=== PATIENT | male | born 1995 | race Caucasian/White ===

== ENCOUNTER 2016-12-14 12:01 | Emergency (ER) | payer OTHER | END 2016-12-14 14:17 | disposition home or self-care (01) | LOC: ER 12:01 | DX: K52.9 Noninfective gastroenteritis and colitis, unspecified (principal); J01.90 Acute sinusitis, unspecified; F17.210 Nicotine dependence, cigarettes, uncomplicated; Z79.899 Other long term (current) drug therapy; F32.9 Major depressive disorder, single episode, unspecified | CPT/HCPCS: 36415; 74022; 80053; 83690; 85025; 87804; 87880 ==